=== PATIENT | male | born 1960 | race Hispanic/Latino ===

== ENCOUNTER → 2025-04-18 | Outpatient (CLI) | payer BC ==
[~2025-04-18] MED LIST: ALLO300T2 PO; CHLO50TA PO; ENAL-91 PO; FLUTICASONE 50 MCG; GEMF600T89 PO
--- NOTE | 2025-04-19 00:17 | HMCIMG ---
US RENAL SONOGRAM CLINICAL HISTORY: Acquired renal cyst. COMPARISON: Prior RENAL SONOGRAM dated 01/11/2017. TECHNIQUE: Real-time grayscale and color Doppler ultrasound evaluation of the kidneys and urinary bladder was performed. FINDINGS: RIGHT KIDNEY: The right kidney measures 12.7 x 6.1 x 5.5 cm. Renal cortical echogenicity is within normal limits with preserved corticomedullary differentiation. A well-circumscribed anechoic cyst is present measuring 4.6 x 4.2 x 3.5 cm, without internal septations, mural nodularity, or internal vascularity. No hydronephrosis or shadowing calculi are identified. LEFT KIDNEY: The left kidney measures 12.7 x 4.9 x 4.1 cm. Renal cortical echogenicity is within normal limits with preserved corticomedullary differentiation. A simple appearing anechoic cyst is identified measuring 1.9 x 2.5 x 1.6 cm, without septations, mural nodularity, or internal vascularity. No hydronephrosis or renal calculi are seen. URINARY BLADDER: The urinary bladder is partially distended. The bladder wall measures approximately 3 mm in thickness. No focal wall thickening, intraluminal mass, or debris is identified. IMPRESSION: 1. Simple cyst in the right kidney measuring up to 4.6 cm, with benign sonographic features (Bosniak I). 2. Small simple cyst in the left kidney measuring up to 2.5 cm (Bosniak I). 3. No hydronephrosis or sonographic evidence of obstructive uropathy. 4. Comparison is made with prior RENAL SONOGRAM dated 01/11/2017. Right renal cyst appears slightly decreased in size. Left renal cyst appears slightly increased in size. RECOMMENDATIONS: According to ACR Appropriateness Criteria, simple renal cysts with benign imaging characteristics (Bosniak I) require no routine imaging follow-up. Clinical correlation is recommended, and follow-up imaging may be considered only if new symptoms or complications arise. /Stella
== END | disposition home or self-care (01) ==
LOC: RAH 09:50
PROVIDERS: ATTEND Internal Medicine Nephrology
DX: N28.1 Cyst of kidney, acquired (principal); N32.89 Other specified disorders of bladder
CPT/HCPCS: 76770